=== PATIENT | male | born 1975 | race Two or more races ===

== ENCOUNTER 2018-02-02 12:40 | Emergency (ER) | payer OTHER ==
[~2018-02-02] VITALS: Ht 188 cm; Wt 90.7 kg
[2018-02-02 12:43] VITALS: BP 143/94
[2018-02-02] MEDS ORDERED: SUMATRIPTAN SUCCINATE 6 MG/0.5 ML VIAL SQ ONE ×2 (13:27→13:30)
== END 2018-02-02 14:15 | disposition home or self-care (01) ==
LOC: ER 12:45
DX: G44.009 Cluster headache syndrome, unspecified, not intractable (principal)
CPT/HCPCS: A4606; J3030; Z7610